=== PATIENT | female | born 2000 | race Caucasian/White ===

== ENCOUNTER 2022-08-30 22:25 | Emergency (ER) | payer MEDICAID, OTHER ==
[~2022-08-30] VITALS: Ht 162.6 cm; Wt 63.0 kg
[2022-08-30 22:59] VITALS: BP 119/73; O2SAT 100
[2022-08-31] MEDS ORDERED: ACETAMINOPHEN 325MG TABLET PO PRN (00:15)
[2022-08-31 01:16] LABS: HEMATOCRIT. 38.2 % (36.0-48.0); HEMOGLOBIN. 13.1 g/dL (12.0-16.0); MEAN CORPUSCULAR VOLUME 87.7 fL (81.0-99.0); MEAN PLATELET VOLUME 8.5 fl (7.4-10.4); PLATELET 223 x1000/uL (130-400); RED BLOOD CELL COUNT 4.35 mill/uL (4.2-5.4); RED CELL DISTRIBUTION WIDTH 13.4 % (11.6-14.6)
[2022-08-31 01:28] LABS: CHLORIDE 106 mEq/L (98-107)
[2022-08-31 01:50] LABS: B-HCG QUANTITATIVE 2756 mIU/mL (<3)
[2022-08-31 02:51] LABS: CLARITY URINE CLEAR (CLEAR); COLOR URINE YELLOW (YELLOW); KETONES URINE NEGATIVE (NEGATIVE); LEUKOCYTE ESTERASE URINE NEGATIVE (NEGATIVE); NITRITE URINE NEGATIVE (NEGATIVE); OCCULT BLOOD URINE TRACE (NEGATIVE); PROTEIN URINE NEGATIVE (NEGATIVE); SPECIFIC GRAVITY URINE 1.021 (1.005-1.030); UROBILINOGEN URINE 0.2 E.U./dL (0.2-1.0)
[2022-08-31 02:52] VITALS: PULSE 105; RESP 18; TEMP 98.3
[2022-08-31 07:57] LABS: PLATELET ESTIMATE NORMAL
[2022-09-02] MEDS ORDERED: IBUP-2030 MT (21:18)
[2022-09-02] MEDS ORDERED: DOXY150T5 MT (21:18)
== END 2022-08-31 02:50 | disposition home or self-care (01) ==
LOC: ER 22:58
DX: O03.9 Complete or unspecified spontaneous abortion without complication (principal); Z3A.09 9 weeks gestation of pregnancy
CPT/HCPCS: 36415; 76801; 80053; 81003; 81025; 84702; 85025; 86850; 86900; 99284

== ENCOUNTER 2022-09-02 01:24 | Day surgery (SDC) | payer MEDICAID ==
[~2022-09-02] VITALS: Ht 162.6 cm; Wt 65.6 kg
[2022-09-02 01:39] VITALS: O2SAT 100
[2022-09-02 03:24] LABS: BASOPHILS % 0.5 % (0.0-2.0); EOSINOPHILS % 4.6 % (0.0-5.0); HEMATOCRIT. 34.1 % (36.0-48.0); HEMOGLOBIN. 11.8 g/dL (12.0-16.0); LYMPHOCYTES % 21.8 % (20.0-50.0); MEAN CORPUSCULAR VOLUME 86.3 fL (81.0-99.0); MEAN PLATELET VOLUME 8.4 fl (7.4-10.4); NEUTROPHILS % 63.1 % (40.0-76.0); PLATELET 230 x1000/uL (130-400); RED BLOOD CELL COUNT 3.95 mill/uL (4.2-5.4); RED CELL DISTRIBUTION WIDTH 13.1 % (11.6-14.6)
[2022-09-02 03:34] LABS: CHLORIDE 109 mEq/L (98-107)
[2022-09-02 03:57] LABS: B-HCG QUANTITATIVE 1159 mIU/mL (<3)
[2022-09-02 05:00] VITALS: TEMP 98.2
[2022-09-02] MEDS ORDERED: SODIUM CHLORIDE 0.9% 1,000 ML IV ONE (06:15)
[2022-09-02] MEDS ORDERED: DEXT 5%/LR + PITOCIN 20UNITS/L 1,000 ML IV SCH (10:00)
[2022-09-02] MEDS ORDERED: ONDANSETRON HCL 4MG/2ML INJ IV PRN (10:00)
[2022-09-02] MEDS ORDERED: DEXT 5%/0.45% NACL 1000ML 1,000 ML IV SCH (10:00)
[2022-09-02] MEDS ORDERED: ACETAMINOPHEN 650MG/20.3ML UDC GT PRN (10:00)
[2022-09-02 10:13] LABS: CLARITY URINE TURBID (CLEAR); COLOR URINE RED (YELLOW); KETONES URINE NEGATIVE (NEGATIVE); LEUKOCYTE ESTERASE URINE 1+ (NEGATIVE); NITRITE URINE NEGATIVE (NEGATIVE); OCCULT BLOOD URINE 3+ (NEGATIVE); PROTEIN URINE 1+ (NEGATIVE); SPECIFIC GRAVITY URINE 1.017 (1.005-1.030); UROBILINOGEN URINE 0.2 E.U./dL (0.2-1.0)
[2022-09-02] MEDS ORDERED: OXYTOCIN 30 UNITS/500ML NS PMX 500 ML IV SCH (10:15)
[2022-09-02 11:14] VITALS: BP 110/51; PULSE 69; RESP 20
[2022-09-02] MEDS ORDERED: PROPOFOL 200MG/20ML VIAL IV ONE ×4 (11:45→19:10)
[2022-09-02] MEDS ORDERED: ONDANSETRON HCL 4MG/2ML INJ ONE ×2 (13:47→19:08)
[2022-09-02] MEDS ORDERED: MIDAZOLAM HCL 2 MG/2 ML VIAL ONE ×2 (13:47→17:43)
[2022-09-02] MEDS ORDERED: KETOROLAC 30MG/ML VIAL ONE ×2 (13:47→19:08)
[2022-09-02] MEDS ORDERED: CEFAZOLIN SODIUM 1000MG/VIAL ONE (13:47)
[2022-09-02] MEDS ORDERED: DEXAMETHASONE 4MG/ML 1ML VIAL ONE (13:47)
[2022-09-02] MEDS ORDERED: FENTANYL CITRATE/PF 50MCG/ML 2ML VIAL ONE ×2 (13:48→17:43)
[2022-09-02] MEDS ORDERED: LIDOCAINE HCL 1% 10 MG/ML 10ML VIAL ONE (17:43)
[2022-09-02] MEDS ORDERED: IBUP-2030 MT (21:18)
[2022-09-02] MEDS ORDERED: DOXY150T5 MT (21:18)
== END 2022-09-02 21:35 | disposition home or self-care (01) ==
LOC: ER 02:16 → UNDOADMIN 09:41 → 6EST 09:41 → OR 18:53 → 6EST 09-03 00:11 → MICUSO 09-03 00:11
PROVIDERS: ATTEND Obstetrics & Gynecology
DX: O03.4 Incomplete spontaneous abortion without complication (principal); Z3A.14 14 weeks gestation of pregnancy; Z79.899 Other long term (current) drug therapy; Z98.890 Other specified postprocedural states; Z20.822 Contact with and (suspected) exposure to COVID-19
CPT/HCPCS: 59812; 80053; 81003; 84702; 85025; 86850; 86900; 86901; 36415; 88305; 76801; 76817; 99285; 87426; J3010; J0690; J1885; J3490; J2250; J2405; J2704; C9803; J1100; J2590

== ENCOUNTER 2024-01-20 12:50 | Emergency (ER) | payer MEDICAID, OTHER ==
[~2024-01-20] VITALS: Ht 162.6 cm; Wt 61.0 kg
[~2024-01-20 12:50] MED LIST: DOXY150T8 MT; IBUP-2030 MT
[2024-01-20 12:53] VITALS: O2SAT 99
[2024-01-20 13:09] VITALS: BP 106/52; PULSE 73; RESP 18; TEMP 98.5; O2SAT 99
[2024-01-20] MEDS ORDERED: DEXT15DR5 EACHEYE (13:12)
== END 2024-01-20 13:22 | disposition home or self-care (01) ==
LOC: ER 13:01
DX: H00.023 Hordeolum internum right eye, unspecified eyelid (principal); Z90.49 Acquired absence of other specified parts of digestive tract
CPT/HCPCS: 99283